=== PATIENT | male | born 1945 | race Caucasian/White ===

== ENCOUNTER 2017-07-23 11:14 | Inpatient (IN) | payer MEDICARE, OTHER ==
--- NOTE | 2017-07-23 11:48 | ER Document Report ---
ED General - General Chief Complaint: Nausea/Vomiting Stated Complaint: FLU LIKE SYMPTOMS Time Seen by Provider: 07/23/17 11:47 Mode of Arrival: Ambulatory Information source: Patient TRAVEL OUTSIDE OF THE [place] IN LAST 30 DAYS: No - HPI Onset: This morning - 1 A.M. Onset/Duration: Sudden Quality of pain: Cramping Severity: Moderate Associated symptoms: Diarrhea, Nausea, Vomiting. denies: Chest pain, Chills, Earache, Shortness of breath, Sweating Exacerbated by: Denies Relieved by: Denies Similar symptoms previously: No Recently seen / treated by doctor: No - Related Data Allergies/Adverse Reactions: Penicillins Allergy (Intermediate, Verified 07/23/17 11:16) Swelling Home Medications: Current Home Medications Atorvastatin Calcium [Lipitor 10 mg Tablet] 10 mg PO QHS 07/23/17 [History] Donepezil HCl [Aricept 5 mg Tablet] 5 mg PO DAILY 07/23/17 [History] Sertraline HCl [Zoloft] 25 mg PO DAILY 07/23/17 [History] Temazepam [Restoril 15 mg Capsule] 15 mg PO HSP PRN 07/23/17 [History] Past Medical History - General Information source: Patient - Social History Smoking Status: Unknown if Ever Smoked Frequency of alcohol use: Rare Drug Abuse: None Lives with: Spouse/Significant other Family History: None Patient has suicidal ideation: No Patient has homicidal ideation: No - Past Medical History Cardiac Medical History: Reports: Hx Hypercholesterolemia Denies: Hx Heart Attack, Hx Hypertension Pulmonary Medical History: Reports: None Denies: Hx Asthma, Hx Tuberculosis EENT Medical History: Reports: None Neurological Medical History: Reports: None. Denies: Hx Cerebrovascular Accident, Hx Seizures Endocrine Medical History: Reports: None Renal/ Medical History: Reports: None. Denies: Hx Benign Prostatic Hyperplasia, Hx End Stage Renal Disease, Hx Kidney Stones, Hx Peritoneal Dialysis Malignancy Medical History: Reports Hx Colorectal Cancer GI Medical History: Reports: None. Denies: Hx Crohn's Disease, Hx Gastroesophageal Reflux Disease, Hx Hepatitis, Hx Hiatal Hernia, Hx Irritable Bowel, Hx Liver Failure, Hx Pancreatitis, Hx Ulcer Musculoskeltal Medical History: Reports None Psychiatric Medical History: Reports: None, Hx Depression Infectious Medical History: Denies: Hx Hepatitis Past Surgical History: Reports: Hx Bowel Surgery - COLON RESECTION, Hx Genitourinary Surgery - partial colon removal. Denies: Hx Appendectomy, Hx Cholecystectomy, Hx Colostomy, Hx Coronary Artery Bypass Graft, Hx Gastric Bypass Surgery, Hx Herniorrhaphy, Hx Open Heart Surgery, Hx Pacemaker, Hx Tonsillectomy - Immunizations Hx Diphtheria, Pertussis, Tetanus Vaccination: No Review of Systems - Review of Systems Constitutional: No symptoms reported EENT: See HPI Cardiovascular: No symptoms reported Respiratory: No symptoms reported Gastrointestinal: See HPI Genitourinary: No symptoms reported Musculoskeletal: No symptoms reported Skin: No symptoms reported Neurological/Psychological: No symptoms reported Physical Exam - Vital signs Vitals: Pulse Resp BP Pulse Ox 76 24 H 95/61 L 97 07/23/17 11:33 07/23/17 11:33 07/23/17 11:33 07/23/17 11:33 Interpretation: Hypotensive, Tachypneic. No: Tachycardic, Hypoxic - General General appearance: Alert, Anxious In distress: None - HEENT Head: Normocephalic Eyes: Normal Conjunctiva: Normal Ears: Normal Nasal: Normal Mouth/Lips: Normal Mucous membranes: Dry Pharynx: Normal Neck: Normal - Respiratory Respiratory status: No respiratory distress Breath sounds: Normal - Cardiovascular Rhythm: Regular Heart sounds: Normal auscultation Murmur: No - Abdominal Inspection: Normal Distension: No distension Bowel sounds: Hypoactive - Extremities General upper extremity: Normal inspection General lower extremity: Normal inspection - Neurological Neuro grossly intact: Yes Cognition: Normal Orientation: AAOx4 - Psychological Associated symptoms: Normal affect, Normal mood - Skin Skin Temperature: Warm Skin Moisture: Dry Skin Color: Normal Skin Turgor: Elastic Course - Vital Signs Vital signs: Temp Pulse Resp BP Pulse Ox 98.1 F 80 18 106/51 L 98 07/23/17 16:20 07/23/17 16:20 07/23/17 16:20 07/23/17 16:20 07/23/17 16:20 - Laboratory Result Diagrams: 07/23/17 12:15 07/23/17 12:15 Laboratory results interpreted by me: 07/23/17 07/23/17 07/23/17 12:15 12:15 12:15 WBC 16.4 H RBC 5.58 H Hgb 18.7 H Hct 54.3 H Seg Neuts % (Manual) 92 H Band Neutrophils % 2 L Lymphocytes % (Manual) 1 L Monocytes % (Manual) 2 L Abs Neuts (Manual) 15.4 H Abs Lymphs (Manual) 0.2 L Potassium 6.6 H* Carbon Dioxide 21 L Creatinine 1.87 H Est GFR ( Amer) 43 L Est GFR (Non-Af Amer) 36 L Glucose 184 H Calcium 11.4 H Total Protein 9.0 H Albumin 5.6 H Lipase 315.0 H - EKG Interpretation by Ct EKG shows normal: Sinus rhythm, [place], Intervals, QRS Complexes, ST-T Waves Rate: Normal Rhythm: NSR - Consults DR. CAMPBELL Time consulted: 13:12 Consulted provider: will come to ER Discharge - Discharge Clinical Impression: Gastroenteritis, Dehydration, Hyperkalemia Renal failure, acute Qualifiers: Acute renal failure type: unspecified Qualified Code(s): N17.9 - Acute kidney failure, unspecified Condition: Fair Disposition: ADMITTED INPATIENT Admitting Provider: Hospitalist
[2017-07-23] MEDS ORDERED: ONDANSETRON 4 MG TAB.RAPDIS PO ONE (12:04)
[2017-07-23] MEDS ORDERED: NORMAL SALINE 1000 ML 2,000 ML IV ONE (12:04)
[2017-07-23 12:28] LABS: HEMATOCRIT 54.3 % (37.9-51.0); HEMOGLOBIN 18.7 g/dL (13.5-17.0); MEAN CORPUSCULAR HEMOGLOBIN 33.4 pg (27.0-33.4); MEAN CORPUSCULAR HGB CONC 34.3 g/dL (32.0-36.0); MEAN CORPUSCULAR VOLUME 97 fl (80-97); PLATELET COUNT 267 10^3/uL (150-450); RED BLOOD COUNT 5.58 10^6/uL (4.35-5.55); RED CELL DISTRIBUTION WIDTH 13.1 % (11.5-14.0); WHITE BLOOD COUNT 16.4 10^3/uL (4.0-10.5)
[2017-07-23 12:41] LABS: ALANINE AMINOTRANSFERASE 47 U/L (21-72); ALBUMIN 5.6 g/dL (3.5-5.0); ALKALINE PHOSPHATASE 99 U/L (38-126); ANION GAP 18 (5-19); ASPARTATE AMINO TRANSFERASE 41 U/L (17-59); BILIRUBIN,DIRECT 0.3 mg/dL (0.0-0.4); BILIRUBIN,TOTAL 1.1 mg/dL (0.2-1.3); BLOOD UREA NITROGEN 19 mg/dL (7-20); CALCIUM 11.4 mg/dL (8.4-10.2); CARBON DIOXIDE 21 mmol/L (22-30); CHLORIDE 106 mmol/L (98-107); CREATINE KINASE 100 U/L (55-170); GLUCOSE 184 mg/dL (75-110)
[2017-07-23 12:43] LABS: ABSOLUTE LYMPHOCYTES# (MANUAL) 0.2 10^3/uL (0.5-4.7); ABSOLUTE MONOCYTES # (MANUAL) 0.3 10^3/uL (0.1-1.4); ABSOLUTE NEUTROPHILS# (MANUAL) 15.4 10^3/uL (1.7-8.2); BAND NEUTROPHILS % (MANUAL) 2 % (3-5); BASOPHILS % (MANUAL) 0 % (0-2); EOSINOPHILS % (MANUAL) 3 % (0-6); LYMPHOCYTES % (MANUAL) 1 % (13-45); MONOCYTES % (MANUAL) 2 % (3-13); PLATELET COMMENT ADEQUATE; RBC MORPHOLOGY COMMENT NORMO-CYTIC/CHROMIC; SEGMENTED NEUTROPHILS % (MAN) 92 % (42-78); TOTAL CELLS COUNTED 100
[2017-07-23 12:49] LABS: POTASSIUM 6.6 mmol/L (3.6-5.0)
[2017-07-23 12:53] LABS: CREATINE KINASE MB 1.02 ng/mL (<4.55)
[2017-07-23] MEDS ORDERED: ALBUTEROL SULFATE 0.083% NEB 2.5 MG/3 ML AMPUL NEB ONE (12:55)
[2017-07-23] MEDS ORDERED: CALCIUM GLUCONATE 1000 MG/10 ML INJ IV ONE (12:56)
[2017-07-23] MEDS ORDERED: INSULIN REG, HUMAN 100 UNIT/ML 3 ML VIAL (PYX) IV ONE (12:58)
[2017-07-23 12:59] LABS: A TYPE INFLUENZA AG NEGATIVE (NEGATIVE); B INFLUENZA AG NEGATIVE (NEGATIVE)
[2017-07-23 12:59] LABS: TROPONIN I < 0.012 ng/mL
[2017-07-23] MEDS ORDERED: DEXTROSE 50%-WATER 25 GM/50 ML DISP.SYRIN IV ONE (13:00)
[2017-07-23] MEDS ORDERED: ONDANSETRON HCL INJ/PF 4 MG/2 ML SDV IV PRN (13:24)
[2017-07-23] MEDS ORDERED: ACETAMINOPHEN 325 MG TABLET PO PRN (13:24)
[2017-07-23] MEDS ORDERED: TEMAZEPAM 15 MG CAPSULE PO PRN (14:03)
[2017-07-23] MEDS ORDERED: PROMETHAZINE HCL INJ 25 MG/1 ML VIAL IV PRN (14:07)
[2017-07-23] MEDS: NORMAL SALINE 1000 ML 1,000 ML IV PRN ×2 (14:54→22:48)
--- NOTE | 2017-07-23 15:04 | PDOC H&P ---
History of Present Illness Admission Date/PCP: LIONEL WESTFALL Patient complains of: nausea, vomiting and diarrhea starting 1 am this morning History of Present Illness: ANT CHÁVEZ is a 71 year old male with a history of CVA, colon cancer, depression, hyperlipidemia, cognitive impairment, insomnia presenting with a 1 day history of nausea vomiting diarrhea and muscle cramps. Patient states he was well yesterday. Patient went to bed and woke up and was having profuse vomiting and diarrhea. Patient states his vomitus consisted consisted of food particles and then became yellow. Patient initially had a normal bowel movement and then developed multiple nonbloody watery stools. Patient states he started to develop terrible leg cramps and muscle spasms. Patient also complained of headache. Per patient's her daughter and granddaughter had flulike symptoms and the young granddaughter had diarrhea. She states that he has felt steak and potatoes which everybody else ate last night for [employer] dinner. The ED patient was noted to have acute renal failure with a creatinine of 1.87 and creatinine of 6.6. Patient had a white count of 16.4 patient was hypotensive at 95/61. He was given a liter of normal saline, gluconate, albuterol treatment and insulin. Hospitalist service was called to admit patient for severe dehydration due to viral gastroenteritis. Past Medical History Cardiac Medical History: Reports: Hyperlipidema Denies: Myocardial Infarction, Hypertension Pulmonary Medical History: Reports: None Denies: Asthma, Tuberculosis EENT Medical History: Reports: None Neurological Medical History: Reports: Ischemic CVA Denies: Seizures Endocrine Medical History: Reports: None Renal/ Medical History: Reports: None Denies: End Stage Renal Disease Malignancy Medical History: Reports: None, Other - Colon cancer GI Medical History: Reports: None Denies: Crohn's Disease, Gastroesophageal Reflux Disease, Hepatitis, Hiatal Hernia Musculoskeltal Medical History: Reports: None Psychiatric Medical History: Reports: Depression Hematology: Denies: Anemia, Sickle Cell Disease Past Surgical History Past Surgical History: Reports: Other - Colectomy in 2000 Denies: Appendectomy, Cholecystectomy, Colostomy, Coronary Artery Bypass Graft, Gastric Bypass Surgery, Herniorrhaphy, Pacemaker, Tonsillectomy Social History Lives with: Spouse/Significant other Smoking Status: Unknown if Ever Smoked Hx Recreational Drug Use: No Hx Prescription Drug Abuse: No - Advance Directive Resuscitation Status: Full Code Family History Family History: CVA Parental Family History Reviewed: No Children Family History Reviewed: No Sibling(s) Family History Reviewed.: No Medication/Allergy Home Medications: Atorvastatin Calcium [Lipitor 10 mg Tablet] 10 mg PO QHS 07/23/17 Donepezil HCl [Aricept 5 mg Tablet] 5 mg PO DAILY 07/23/17 Sertraline HCl [Zoloft] 25 mg PO DAILY 07/23/17 Temazepam [Restoril 15 mg Capsule] 15 mg PO HSP PRN 07/23/17 Allergies/Adverse Reactions: Penicillins Allergy (Intermediate, Verified 07/23/17 11:16) Swelling Review of Systems Constitutional: PRESENT: fatigue, weakness. ABSENT: chills, fever(s), headache( s), weight gain, weight loss Eyes: ABSENT: visual disturbances Ears: ABSENT: hearing changes Nose, Mouth, and Throat: PRESENT: headache(s) Cardiovascular: ABSENT: chest pain, dyspnea on exertion, edema, orthropnea, palpitations Respiratory: ABSENT: cough, hemoptysis Gastrointestinal: PRESENT: diarrhea, nausea, vomiting. ABSENT: abdominal pain, constipation, hematemesis, hematochezia Genitourinary: ABSENT: dysuria, hematuria Musculoskeletal: PRESENT: muscle weakness. ABSENT: joint swelling Integumentary: ABSENT: rash, wounds Neurological: PRESENT: weakness. ABSENT: abnormal gait, abnormal speech, confusion, dizziness, focal weakness, syncope Psychiatric: ABSENT: anxiety, depression, homidical ideation, suicidal ideation Endocrine: ABSENT: cold intolerance, heat intolerance, polydipsia, polyuria Hematologic/Lymphatic: ABSENT: easy bleeding, easy bruising Physical Exam Vital Signs: Temp Pulse Resp BP Pulse Ox 76 24 H 95/61 L 97 07/23/17 11:33 07/23/17 11:33 07/23/17 11:33 07/23/17 11:33 Intake & Output 07/22/17 07/23/17 07/24/17 06:59 06:59 06:59 Weight 75.5 kg General appearance: PRESENT: no acute distress, well-developed, well-nourished Head exam: PRESENT: normocephalic Eye exam: PRESENT: EOMI. ABSENT: scleral icterus Ear exam: PRESENT: normal external ear exam Mouth exam: PRESENT: dry mucosa Neck exam: ABSENT: carotid bruit, JVD, lymphadenopathy, thyromegaly Respiratory exam: PRESENT: clear to auscultation reji. ABSENT: rales, rhonchi, wheezes Cardiovascular exam: PRESENT: RRR. ABSENT: diastolic murmur, rubs, systolic murmur GI/Abdominal exam: PRESENT: normal bowel sounds, soft. ABSENT: distended, guarding, mass, organolmegaly, rebound, tenderness Rectal exam: PRESENT: deferred Extremities exam: PRESENT: full ROM. ABSENT: calf tenderness, clubbing, pedal edema Neurological exam: PRESENT: alert, awake, oriented to person, oriented to place , oriented to time, oriented to situation, CN II-XII grossly intact. ABSENT: motor sensory deficit Psychiatric exam: PRESENT: appropriate affect, normal mood. ABSENT: homicidal ideation, suicidal ideation Skin exam: PRESENT: dry, intact, warm. ABSENT: cyanosis, rash Results Laboratory Results: 07/23/17 12:15 07/23/17 12:15 07/23/17 07/23/17 07/23/17 12:15 12:15 12:15 WBC 16.4 H RBC 5.58 H Hgb 18.7 H Hct 54.3 H MCV 97 MCH 33.4 MCHC 34.3 RDW 13.1 Plt Count 267 Seg Neutrophils % Not Reportable Lymphocytes % Not Reportable Monocytes % Not Reportable Eosinophils % Not Reportable Basophils % Not Reportable Absolute Neutrophils Not Reportable Absolute Lymphocytes Not Reportable Absolute Monocytes Not Reportable Absolute Eosinophils Not Reportable Absolute Basophils Not Reportable Sodium 145.0 Potassium 6.6 H* Chloride 106 Carbon Dioxide 21 L Anion Gap 18 BUN 19 Creatinine 1.87 H Est GFR ( Amer) 43 L Est GFR (Non-Af Amer) 36 L Glucose 184 H Calcium 11.4 H Total Bilirubin 1.1 AST 41 ALT 47 Alkaline Phosphatase 99 Total Protein 9.0 H Albumin 5.6 H Lipase 315.0 H 07/23/17 07/23/17 12:15 12:15 Creatine Kinase 100 CK-MB (CK-2) 1.02 Troponin I < 0.012 Assessment & Plan - Diagnosis (1) Viral sepsis Is this a current diagnosis for this admission?: Yes Plan: Patient with viral gastroenteritis resulting in leukocytosis (WBC 16.4), hypotension (blood pressure 96/72), and acute renal failure (creatinine 1.87). Will treat patient with aggressively with fluid resuscitation. Rule out bacterial infection with blood cultures, urine cultures, stool cultures and C. difficile PCR. No antibiotics started at this time. (2) Gastroenteritis Plan: Most likely viral gastroenteritis vomiting and nausea vomiting and diarrhea. Will treat supportively with IV hydration and as needed antiemetics. (3) Renal failure, acute Qualifiers: Acute renal failure type: unspecified Qualified Code(s): N17.9 - Acute kidney failure, unspecified Plan: Acute renal failure most likely due to dehydration secondary to vomiting and diarrhea. Patient creatinine is 1.87 today however last creatinine recorded was 1.06 in 2013. Will hydrate patient aggressively with NS at 125cc/hr and follow-up BMP for improvement in creatinine. (4) Dehydration Plan: Secondary to vomiting and diarrhea. Will aggressively hydrate with IV fluids. Will encourage p.o. fluids as tolerated. (5) Metabolic acidosis Plan: Secondary diarrhea. Will hydrate patient aggressively and follow-up BMP. (6) Hypercalcemia Plan: Secondary to dehydration. Calcium is 11.4 and was normal prior to this. Will hydrate and follow-up BMP. (7) Hyperkalemia Plan: Continue to acute renal failure with a creatinine of 1.87. Potassium is 6.6. Patient given calcium gluconate, albuterol, dextrose and insulin. Kayexalate was given as patient is nauseated and having profuse diarrhea. Will follow a BMP at 1800 to make sure potassium is trending down. Will also admit patient to a telemetry floor. (8) Cramps, muscle, general Is this a current diagnosis for this admission?: Yes Plan: Patient body cramps most likely due to dehydration secondary to vomiting and diarrhea. Patient magnesium is normal at 2. Will aggressively hydrate patient - Time Time Spent: 30 to 50 Minutes Anticipated discharge: Home Within: within 36 hours - Inpatient Certification Medical Necessity: Need Close Monitoring Due to Risk of Patient Decompensation, Need For IV Fluids
[2017-07-23 15:50] LABS: APPEARANCE,URINE CLOUDY; BILIRUBIN,URINE NEGATIVE (NEGATIVE); COLOR,URINE YELLOW; GLUCOSE, URINE >=500 mg/dL (NEGATIVE); KETONES,URINE NEGATIVE (NEGATIVE); LEUKOCYTE ESTERASE,URINE NEGATIVE (NEGATIVE); NITRITE,URINE NEGATIVE (NEGATIVE); PROTEIN,URINE 100 mg/dL (NEGATIVE); URINE SPECIFIC GRAVITY 1.016; UROBILINOGEN,URINE NEGATIVE mg/dL (<2.0)
--- NOTE | 2017-07-23 15:54 | EKG REPORT ---
SEVERITY:- NORMAL ECG - SINUS RHYTHM : Confirmed by: Kathleen Chaney 23-Jul-2017 15:54:22
[2017-07-23 18:49] LABS: ANION GAP 13 (5-19); BLOOD UREA NITROGEN 20 mg/dL (7-20); CALCIUM 9.8 mg/dL (8.4-10.2); CARBON DIOXIDE 24 mmol/L (22-30); CHLORIDE 111 mmol/L (98-107); GLUCOSE 140 mg/dL (75-110); SODIUM 148.1 mmol/L (137-145)
[2017-07-23 19:01] LABS: POTASSIUM 4.3 mmol/L (3.6-5.0)
[2017-07-23] MEDS: PANTOPRAZOLE SODIUM 40 MG VIAL IV SCH (21:52)
[2017-07-23] MEDS ORDERED: ATORVASTATIN CALCIUM 10 MG TABLET PO SCH (22:00)
[2017-07-24 04:27] LABS: ABSOLUTE EOSINOPHILS # (AUTO) 0.1 10^3/uL (0.0-0.6); ABSOLUTE LYMPHOCYTES (AUTO) 0.7 10^3/uL (0.5-4.7); ABSOLUTE MONOCYTES (AUTO) 0.8 10^3/uL (0.1-1.4); ABSOLUTE NEUT (AUTO) 8.1 10^3/uL (1.7-8.2); BASOPHILS % (AUTO) 0.3 % (0-2); EOSINOPHILS % (AUTO) 0.8 % (0-6); HEMATOCRIT 40.7 % (37.9-51.0); LYMPHOCYTES % (AUTO) 6.9 % (13-45); MEAN CORPUSCULAR HEMOGLOBIN 34.4 pg (27.0-33.4); MEAN CORPUSCULAR HGB CONC 35.2 g/dL (32.0-36.0); MEAN CORPUSCULAR VOLUME 98 fl (80-97); MONOCYTES % (AUTO) 8.2 % (3-13); PLATELET COUNT 186 10^3/uL (150-450); RED BLOOD COUNT 4.17 10^6/uL (4.35-5.55); RED CELL DISTRIBUTION WIDTH 13.2 % (11.5-14.0); SEGMENTED NEUTROPHILS % (AUTO) 83.8 % (42-78); TOTAL CELLS COUNTED % (AUTO) 100 %; WHITE BLOOD COUNT 9.7 10^3/uL (4.0-10.5)
[2017-07-24 04:31] LABS: HEMOGLOBIN 14.3 g/dL (13.5-17.0)
[2017-07-24 04:51] LABS: ANION GAP 10 (5-19); BLOOD UREA NITROGEN 17 mg/dL (7-20); CALCIUM 8.7 mg/dL (8.4-10.2); CARBON DIOXIDE 20 mmol/L (22-30); CHLORIDE 114 mmol/L (98-107); GLUCOSE 91 mg/dL (75-110); MAGNESIUM 1.6 mg/dL (1.6-2.3); POTASSIUM 4.3 mmol/L (3.6-5.0); SODIUM 143.6 mmol/L (137-145)
[2017-07-24] MEDS: NORMAL SALINE 1000 ML 1,000 ML IV PRN (06:28)
[2017-07-24] MEDS: MAGNESIUM SULFATE/D5W 1 GM/100 ML RTUPB IV SCH ×2 (08:44→09:55)
[2017-07-24] MEDS: PANTOPRAZOLE SODIUM 40 MG VIAL IV SCH (09:56)
[2017-07-24] MEDS ORDERED: DONEPEZIL HCL 5 MG TABLET PO SCH (10:00)
[2017-07-24] MEDS ORDERED: SERTRALINE HCL 50 MG TABLET PO SCH (10:00)
--- NOTE | 2017-07-24 13:57 | PDOC DISCHARGE SUMMARY ---
General - Admit/Disc Date/PCP Admission Date/Primary Care Provider: 07/23/17 13:39 LIONEL WESTFALL Discharge Date: 07/24/17 - Discharge Diagnosis (1) Renal failure, acute Is this a current diagnosis for this admission?: Yes Summary: Ct with IV fluids.Strict input/out put chart; daily wt; daily chemistries. (2) Gastroenteritis Is this a current diagnosis for this admission?: Yes Summary: Ct with IV fluids; ct with Promethazine. (3) Dehydration Is this a current diagnosis for this admission?: Yes Summary: Ct with IV fluids. Monitor daily chemistries. (4) Hyperkalemia Is this a current diagnosis for this admission?: Yes Summary: He had albuterol nebs and Insulin; ct with IV fluids; monitor chemistries.Repeat potassium is normal. (5) Hypercalcemia Is this a current diagnosis for this admission?: Yes Summary: Ct with IV fluids. Repeat calcium is normal. - Additional Information Resuscitation Status: Full Code Home Medications: Atorvastatin Calcium [Lipitor 10 mg Tablet] 10 mg PO QHS 07/23/17 Donepezil HCl [Aricept 5 mg Tablet] 5 mg PO DAILY 07/23/17 Sertraline HCl [Zoloft] 25 mg PO DAILY 07/23/17 Temazepam [Restoril 15 mg Capsule] 15 mg PO HSP PRN 07/23/17 History of Present Illness History of Present Illness: ANT CHÁVEZ is a 71 year old male Hospital Course Hospital Course: He was admitted at telemetry floor and was put on IV fluids, promethazine and had albuterol nebs and Insulin. His repeat WBC, Potassium, Calcium, BUN/Cr and HCO3 are normal.He is no longer having nausea/vomiting and diarrhea and is stable. He will be discharged home to follow up with his PCP. Physical Exam Vital Signs: Temp Pulse Resp BP Pulse Ox 98.3 F 72 16 96/54 L 96 07/24/17 11:06 07/24/17 11:06 07/24/17 11:06 07/24/17 11:06 07/24/17 11:06 Intake & Output 07/23/17 07/24/17 07/25/17 06:59 06:59 06:59 Intake Total 1875 902 Balance 1875 902 Weight 75.2 kg 76.1 kg General appearance: PRESENT: no acute distress, cooperative, well-developed, well-nourished Head exam: PRESENT: atraumatic, normocephalic Eye exam: PRESENT: EOMI, PERRLA Ear exam: PRESENT: normal external ear exam, TM's normal bilaterally Mouth exam: PRESENT: moist, neck supple Respiratory exam: PRESENT: clear to auscultation reji, symmetrical Cardiovascular exam: PRESENT: +S1, +S2 Pulses: PRESENT: +2 pedal pulses bilateral Vascular exam: PRESENT: normal capillary refill GI/Abdominal exam: PRESENT: normal bowel sounds, soft Rectal exam: PRESENT: deferred Neurological exam: PRESENT: alert, awake, oriented to person, oriented to place , oriented to time Psychiatric exam: PRESENT: normal mood Results Laboratory Results: 07/24/17 04:08 07/24/17 04:08 07/23/17 07/23/17 07/23/17 15:10 18:17 18:17 WBC RBC Hgb Hct MCV MCH MCHC RDW Plt Count Seg Neutrophils % Lymphocytes % Monocytes % Eosinophils % Basophils % Absolute Neutrophils Absolute Lymphocytes Absolute Monocytes Absolute Eosinophils Absolute Basophils Sodium 148.1 H Potassium 4.3 D Chloride 111 H Carbon Dioxide 24 Anion Gap 13 BUN 20 Creatinine 1.40 H Est GFR ( Amer) > 60 Est GFR (Non-Af Amer) 50 L Glucose 140 H Lactic Acid 3.6 H Calcium 9.8 Magnesium Urine Color YELLOW Urine Appearance CLOUDY Urine pH 5.0 Ur Specific [place] 1.016 Urine Protein 100 H Urine Glucose (UA) >=500 H Urine Ketones NEGATIVE Urine Blood SMALL H Urine Nitrite NEGATIVE Ur Leukocyte Esterase NEGATIVE Urine WBC (Auto) 4 Urine RBC (Auto) 1 07/23/17 07/24/17 07/24/17 22:20 04:08 04:08 WBC 9.7 RBC 4.17 L Hgb 14.3 D Hct 40.7 MCV 98 H MCH 34.4 H MCHC 35.2 RDW 13.2 Plt Count 186 Seg Neutrophils % 83.8 H Lymphocytes % 6.9 L Monocytes % 8.2 Eosinophils % 0.8 Basophils % 0.3 Absolute Neutrophils 8.1 Absolute Lymphocytes 0.7 Absolute Monocytes 0.8 Absolute Eosinophils 0.1 Absolute Basophils 0.0 Sodium 143.6 Potassium 4.3 Chloride 114 H Carbon Dioxide 20 L Anion Gap 10 BUN 17 Creatinine 1.25 Est GFR ( Amer) > 60 Est GFR (Non-Af Amer) 57 L Glucose 91 Lactic Acid 2.0 Calcium 8.7 Magnesium 1.6 Urine Color Urine Appearance Urine pH Ur Specific [place] Urine Protein Urine Glucose (UA) Urine Ketones Urine Blood Urine Nitrite Ur Leukocyte Esterase Urine WBC (Auto) Urine RBC (Auto) 07/24/17 04:08 WBC RBC Hgb Hct MCV MCH MCHC RDW Plt Count Seg Neutrophils % Lymphocytes % Monocytes % Eosinophils % Basophils % Absolute Neutrophils Absolute Lymphocytes Absolute Monocytes Absolute Eosinophils Absolute Basophils Sodium Potassium Chloride Carbon Dioxide Anion Gap BUN Creatinine Est GFR ( Amer) Est GFR (Non-Af Amer) Glucose Lactic Acid 0.7 Calcium Magnesium Urine Color Urine Appearance Urine pH Ur Specific [place] Urine Protein Urine Glucose (UA) Urine Ketones Urine Blood Urine Nitrite Ur Leukocyte Esterase Urine WBC (Auto) Urine RBC (Auto) Qualifiers VTE patient discharged on overlapping Therapy?: Yes Stroke Pt being discharged on Anti-thrombolytic therapy?: Yes Stroke Pt being discharged on Anti-coagulation therapy?: Yes
[2017-07-24 14:37] VITALS: BP 106/51
== END 2017-07-24 15:22 | disposition home or self-care (01) | DRG 392 ==
LOC: ER 11:14 → EH 13:39 → 5 15:29
PROVIDERS: ADMIT Internal Medicine; ATTEND Internal Medicine
DX: A08.4 Viral intestinal infection, unspecified (principal); N17.9 Acute kidney failure, unspecified; E87.2 Acidosis; E86.0 Dehydration; E78.5 Hyperlipidemia, unspecified; F32.9 Major depressive disorder, single episode, unspecified; G31.84 Mild cognitive impairment of uncertain or unknown etiology; G47.00 Insomnia, unspecified; E83.52 Hypercalcemia; E78.00 Pure hypercholesterolemia, unspecified; Z79.899 Other long term (current) drug therapy; Z85.038 Personal history of other malignant neoplasm of large intestine; Z86.73 Personal history of transient ischemic attack (TIA), and cerebral infarction without residual deficits; Z90.49 Acquired absence of other specified parts of digestive tract; Z88.0 Allergy status to penicillin; Z82.3 Family history of stroke
CPT/HCPCS: 36415; 80048; 80053; 81001; 82550; 82553; 83605; 83690; 83735; 84484; 85025; 87040; 87045; 87205; 87493; 87804; 93005; 93010; 94640; 96360; 99284; J0610; J1815; J3475; J3490; J7030; S0119; S0164

== ENCOUNTER → 2019-05-22 | Outpatient (CLI) | payer MEDICARE, OTHER ==
--- NOTE | 2019-05-22 12:44 | RADIOLOGY REPORT (SQ) ---
EXAM DESCRIPTION: KNEE RIGHT 4 VIEWS COMPLETED DATE/TIME: 05/22/2019 11:21 am REASON FOR STUDY: ANKYLOSIS, RIGHT KNEE M24.661 ANKYLOSIS, RIGHT KNEE M54.5 LOW BACK PAIN COMPARISON: None. NUMBER OF VIEWS: Four views. TECHNIQUE: AP, lateral, and both oblique radiographic images acquired of the right knee. LIMITATIONS: None. FINDINGS: MINERALIZATION: Normal. BONES: No acute fracture or dislocation. No worrisome bone lesions. JOINT: No effusion. SOFT TISSUES: No soft tissue swelling. No radio-opaque foreign body. OTHER: No other significant finding. IMPRESSION: NEGATIVE STUDY OF THE RIGHT KNEE. NO RADIOGRAPHIC EVIDENCE OF ACUTE INJURY. TECHNICAL DOCUMENTATION: JOB ID: [id number] [employer]- All Rights Reserved Reading location - IP/workstation name: [email or web address]
--- NOTE | 2019-05-22 12:56 | RADIOLOGY REPORT (SQ) ---
EXAM DESCRIPTION: LUMBAR SPINE COMPLETE COMPLETED DATE/TIME: 05/22/2019 11:21 am REASON FOR STUDY: LBP M24.661 ANKYLOSIS, RIGHT KNEE M54.5 LOW BACK PAIN COMPARISON: None. NUMBER OF VIEWS: Five views including obliques. TECHNIQUE: AP, lateral, oblique, and sacral radiographic images acquired of the lumbar spine. LIMITATIONS: None. FINDINGS: MINERALIZATION: Normal. SEGMENTATION: Normal. No transitional anatomy. ALIGNMENT: Normal. VERTEBRAE: Maintained height. No fracture or worrisome bone lesion. DISCS: Mild disc narrowing at L4-5 with more significant narrowing at L5-S1. Small marginal osteophy sasha are present. POSTERIOR ELEMENTS: Hypertrophic facet changes at L5-S1. HARDWARE: None in the spine. PARASPINAL SOFT TISSUES: Normal. PELVIS: Intact as visualized. No fractures or worrisome bone lesions. SI joints intact. OTHER: No other significant finding. IMPRESSION: Mild degenerative disc disease, spondylosis, and facet arthropathy. TECHNICAL DOCUMENTATION: JOB ID: [id number] [employer]- All Rights Reserved Reading location - IP/workstation name: [email or web address]
--- NOTE | 2019-05-22 12:57 | RADIOLOGY REPORT (SQ) ---
EXAM DESCRIPTION: SACRUM AND COCCYX COMPLETED DATE/TIME: 05/22/2019 11:22 am REASON FOR STUDY: LBP M24.661 ANKYLOSIS, RIGHT KNEE M54.5 LOW BACK PAIN COMPARISON: None. NUMBER OF VIEWS: Three views. TECHNIQUE: AP, lateral, and tilt views of the sacrum and coccyx. LIMITATIONS: None. FINDINGS: MINERALIZATION: Normal. BONES: No acute fracture or dislocation. No worrisome bone lesions. SOFT TISSUES: No soft tissue swelling. No foreign body. OTHER: No other significant finding. IMPRESSION: NEGATIVE STUDY OF THE SACRUM AND COCCYX. TECHNICAL DOCUMENTATION: JOB ID: [id number] [employer]- All Rights Reserved Reading location - IP/workstation name: [email or web address]
== END ==
LOC: OD 10:15
PROVIDERS: ATTEND Internal Medicine
DX: M24.661 Ankylosis, right knee (principal); M51.36 Other intervertebral disc degeneration, lumbar region; M47.896 Other spondylosis, lumbar region; M54.5 Low back pain
CPT/HCPCS: 72110; 72220

== ENCOUNTER → 2020-02-20 | Outpatient (CLI) | payer MEDICARE, OTHER ==
--- NOTE | 2020-02-20 09:49 | RADIOLOGY REPORT (SQ) ---
EXAM DESCRIPTION: U/S RETROPERITON (RENAL/AORTA) IMAGES COMPLETED DATE/TIME: 02/20/2020 7:34 am REASON FOR STUDY: RIGHT LOWER QUADRANT PAIN R10.31 RIGHT LOWER QUADRANT PAIN COMPARISON: None. TECHNIQUE: Dynamic and static grayscale images acquired of the kidneys and bladder and recorded on P ACS. Additional selected color Doppler and spectral images recorded. LIMITATIONS: None. FINDINGS: RIGHT KIDNEY: Normal size. Normal echogenicity. No solid or suspicious masses. No hydronep hrosis. No calcifications. LEFT KIDNEY: Normal size. Normal echogenicity. No solid or suspicious masses. No hydronephrosis. No calcifications. BLADDER: Poorly distended. No masses. OTHER FINDINGS: No other significant finding. IMPRESSION: NORMAL RENAL AND BLADDER ULTRASOUND. TECHNICAL DOCUMENTATION: JOB ID: [id number] [employer]- All Rights Reserved Reading location - IP/workstation name: [email or web address]
== END ==
LOC: RAD 07:10
PROVIDERS: ATTEND Internal Medicine
DX: R10.31 Right lower quadrant pain (principal)
CPT/HCPCS: 76770